=== PATIENT | male | born 1985 | race Caucasian/White ===

== ENCOUNTER 2017-05-17 00:16 | Emergency (ER) | payer OTHER ==
[2017-05-17 01:35] VITALS: BP 115/76; PULSE 62; RESP 16; TEMP 98.5; O2SAT 100
--- NOTE | 2017-05-17 02:10 | ED PDOC ---
HPI: Male Pain Time Seen by Provider: 05/17/17 01:37 Chief Complaint (Nursing): Male Genitourinary Chief Complaint (Provider): Male Genitourinary History Per: Patient History/Exam Limitations: no limitations Onset/Duration Of Symptoms: Waxing/Waning, Intermittent Episodes, Sudden Onset ( At about 10pm on 05/16/2017) Current Symptoms Are (Timing): Constant Associated Symptoms: Chills Additional Complaint(s): 31 y/o male presents to the ED complaining of sudden onset of left testicular pain that started while at rest around 10 pm. Pain is associated with chills and intermittent (waxes and wanes) but is also constant. Pain initially was associated with pain to lower mid back for 10 minutes but that resolved. NO medications were taken for pain. Denies nausea, vomiting, fever,hematuria, dysuria, frequency, penile discharge, rash, swelling, or any further medical complaints. PMD: No family provider Past Medical History Vital Signs: Last Vital Signs Temp 98.5 F 05/17/17 01:30 Pulse 62 05/17/17 01:30 Resp 16 05/17/17 01:30 BP 115/76 05/17/17 01:30 Pulse Ox 100 05/17/17 01:30 - Medical History PMH: No Chronic Diseases - Surgical History Surgical History: No Surg Hx - Family History Family History: States: Diabetes, Hypertension - Allergies Allergies/Adverse Reactions: Allergies Allergy/AdvReac Type Severity Reaction Status Date / Time No Known Allergies Allergy Verified 05/17/17 01:36 Review of Systems ROS Statement: Except As Marked, All Systems Reviewed And Found Negative (As per HPI, otherwise negative) Constitutional: Positive for: Chills. Negative for: Fever Gastrointestinal: Negative for: Nausea, Vomiting Genitourinary Male: Positive for: Other (Left testicular pain). Negative for: Dysuria, Frequency, Hematuria, Penile Discharge, Rash (or swelling) Musculoskeletal: Positive for: Back Pain (Lower mid back pain but was resolved) Physical Exam - Reviewed Nursing Documentation Reviewed: Yes Vital Signs Reviewed: Yes - Physical Exam Appears: Positive for: Uncomfortable, In Acute Distress Head Exam: Positive for: ATRAUMATIC, NORMOCEPHALIC Skin: Positive for: Warm, Dry Gastrointestinal/Abdominal: Positive for: Soft. Negative for: Tenderness, Mass , Distended, Guarding, Rebound Male Genital Exam: Positive for: normal genitalia, no hernia, scrotum tenderness (L), testicular tenderness (L), other (normal lie and cremasteric reflex). Negative for: inguinal tenderness, lesions, scrotum tenderness (R), testicular tenderness (R), urethral discharge Lymphatic: Negative for: Adenopathy (inguinal), Inguinal Node Tenderness Neurologic/Psych: Positive for: Alert, Oriented - ECG O2 Sat by Pulse Oximetry: 100 (RA) Pulse Ox Interpretation: Normal Medical Decision Making Medical Decision Making: Time: 01:44 Initial Impression: Left testicular pain Differential diagnosis: Torsion, varicocele, hydrocele, hernia Plan: Urine dipstick Chlamydia Testicular US Reevaluation Ultrasound demonstrated hydrocele. DW pt findings. Stable for dc with urology f/u. Scribe Attestation: Documented by Franco Womack acting as a scribe for Rachele Bess MD. Scribe Attestation: All medical record entries made by the Scribe were at my direction and personally dictated by me. I have reviewed the chart and agree that the record accurately reflects my personal performance of the history, physical exam, medical decision making, and the department course for this patient. I have also personally directed, reviewed, and agree with the discharge instructions and disposition. Disposition - Clinical Impression Clinical Impression: Varicocele - Disposition Referrals: Dima Mcdonnell Jr., MD [Staff Provider] - 05/17/17 (CALL IN THE MORNING TO SETUP A FOLLOW UP APPOINTMENT IN 1-2 WEEKS) Disposition: Routine/Home Disposition Time: 04:00 Condition: GOOD Instructions: Varicocele (ED) Forms: [employer] (Mongolian)
--- NOTE | 2017-05-17 10:53 | US ---
HISTORY: LEFT testicular pain TECHNIQUE: Realtime sonography through the scrotum with color and doppler flow. COMPARISON: None Available. FINDINGS: RIGHT TESTICLE: Measures 1.8 x 2.7 x 3.7 cm. Normal echotexture and flow. RIGHT EPIDIDYMIS: Epididymal head measures 0.6 x 0.5 cm. Grossly unremarkable appearance with normal flow. LEFT TESTICLE: Measures 1.8 x 2.1 x 3.8 cm. Normal echotexture and flow. LEFT EPIDIDYMIS: Epididymal head measures 0.9 x 0.8 cm. Grossly unremarkable appearance with normal flow. HYDROCELE: None. VARICOCELE: None. OTHER FINDINGS: None. IMPRESSION: No acute findings related to/accounting for the clinical presentation. Specifically, no evidence of testicular torsion. Concordant results (preliminary interpretation) provided by [facility]. Procedure Completed: 03:24 Preliminary ([facility]) Report: Dictated and Authenticated: 03:41 Final Interpretation: 10:51 [email or web address].
== END 2017-05-17 04:20 | disposition home or self-care (01) ==
LOC: H.ER 00:16
DX: R68.83 Chills (without fever) (principal); I86.1 Scrotal varices; N43.3 Hydrocele, unspecified